=== PATIENT | female | born 1960 | race Caucasian/White ===

== ENCOUNTER 2018-08-22 16:11 | Emergency (ER) ==
[2018-08-22 16:18] VITALS: BP 132/94; TEMP 97.6; BMI 25.4
[2018-08-22] MEDS ORDERED: TORADOL IM STA (16:30)
--- NOTE | 2018-08-22 16:30 | ED.PDOC ---
General ED Provider: Dr. IRIS GARRISON Chief Complaint: Ankle Pain/Injury Stated Complaint: Rt Ankle pain. Twisted ankle earlier today Time Seen by Physician: 16:05 Mode of Arrival: Wheelchair Information Source: Patient Exam Limitations: No limitations Nursing and Triage Documentation Reviewed and Agree: Yes Does patient meet sepsis criteria?: No System Inflammatory Response Syndrome: Not Applicable Sepsis Protocol: For patient's 13 years and over: Temp is 96.8 and below OR 101 and greater Pulse >90 BPM Resp >20/minute Acutely Altered Mental Status Are patient's symptoms suggestive of a new infection, such as: -Pneumonia -Skin, Soft Tissue -Endocarditis -UTI -Bone, Joint Infection -Implantable Device -Acute Abdominal Infection -Wound Infection -Meningitis -Blood Stream Catheter Infection -Unknown Review of Systems - Review Of Systems Constitutional: Reports: No symptoms Eyes: Reports: No symptoms Ears, Nose, Mouth, Throat: Reports: No symptoms Respiratory: Reports: No symptoms Cardiac: Reports: No symptoms GI: Reports: No symptoms : Reports: No symptoms Musculoskeletal: Reports: Joint pain, Joint swelling Skin: Reports: No symptoms Neurological: Reports: No symptoms Endocrine: Reports: No symptoms Hematologic/Lymphatic: Reports: No symptoms All Other Systems: Reviewed and Negative Past Medical History - Past Medical History Previously Healthy: Yes Endocrine: Reports: None Cardiovascular: Reports: None Respiratory: Reports: None Hematological: Reports: None Gastrointestinal: Reports: None Genitourinary: Reports: None Neuro/Psych: Reports: None Musculoskeletal: Reports: None Cancer: Reports: None Last Menstrual Period: N/A - Surgical History General Surgical History: Reports: None - Family History Family History: Reports: None - Social History Smoking Status: Current every day smoker Hx Substance Use: No Alcohol Screening: Occasionally Physical Exam - Physical Exam Appearance: Well-appearing, No pain distress, Well-nourished Eyes: [place], EOMI, Conjunctiva clear ENT: Ears normal, Nose normal, Oropharynx normal Respiratory: Airway patent, Breath sounds clear, Breath sounds equal, Respirations nonlabored Cardiovascular: RRR, Pulses normal, No rub, No murmur GI/: Soft, Nontender, No masses, Bowel sounds normal, No Organomegaly Musculoskeletal: Normal strength, No calf tenderness, Limited ROM (Rt Ankle), Edema Skin: Warm, Dry, Normal color Neurological: Sensation intact, Motor intact, Reflexes intact, Cranial nerves intact, Alert, Oriented Psychiatric: Affect appropriate, Mood appropriate Interpretation - Radiology Interpretation Radiology Interpretation By: Radiologist Radiology Results: Positive (Avulsion fracture Lat Malleolus; Tibiotalar joint effusion -) Critical Care Note - Critical Care Note Total Time (mins): 0 Course - Course Orders, Labs, Meds: Orders Category Date Time Status Ketorolac Tromethamine [Toradol] MEDS 08/22/18 16:30 Discontinued 30 mg IM ONCE STA ANKLE, RIGHT MIN 3 VIEWS Stat RADS 08/22/18 16:28 Completed Medications Discontinued Medications Generic Name Dose Route Start Last Admin Trade Name Freq PRN Reason Stop Dose Admin Ketorolac Tromethamine 30 mg 08/22/18 16:30 08/22/18 16:40 Toradol IM 08/22/18 16:31 30 mg ONCE STA Administration Vital Signs: Temp Pulse Resp BP Pulse Ox 08/22/18 16:13 97.6 F 99 H 20 132/94 H 95 Departure - Departure Time of Disposition: 17:30 Disposition: HOME SELF-CARE Discharge Problem: Fracture of right ankle, lateral malleolus Instructions: Ankle Fracture (ED) Condition: Fair Pt referred to PMD for follow-up: Yes (See PCP OR ORTHOPEDIC SURGEON next WEEK) IPMP verified?: No (unable to access) Additional Instructions: Rx Meds for pain Take Ibuprofen 600 mg three times daily for pain relief Ice Elevate, non wt bearing ambulation RX norco for sever pain Prescriptions: Hydrocodone Bit/Acetaminophen [[place] 7.5-325] 1 each PO Q4HR PRN #12 tablet PRN Reason: ankle fracture Allergies/Adverse Reactions: Allergies Penicillins Adverse Reaction (Verified 08/22/18 16:17) Home Medications: Ambulatory Orders Bupropion HCl [Wellbutrin] 75 mg PO BID 08/22/18 Hydrocodone Bit/Acetaminophen [[place] 7.5-325] 1 each PO Q4HR PRN #12 tablet 08/07 Lisinopril [Zestril] 5 mg PO DAILY 08/22/18 Disposition Discussed With: Patient, Family
--- NOTE | 2018-08-22 16:47 | DI ---
EXAM: Three views of the right ankle. History: Right ankle pain and trauma. Findings: Mildly displaced evulsion fracture of the lateral malleolus with adjacent soft tissue swel ling. Tibiotalar joint effusion is present. No radiopaque foreign bodies. No dislocation. Mild po lyarticular joint space narrowing. Impression: 1. Mildly displaced avulsion fracture of the lateral malleolus with adjacent soft tissue swelling. 2. Tibiotalar joint effusion
== END 2018-08-22 18:40 | disposition home or self-care (01) ==
LOC: ED 16:11
DX: S82.61XA Displaced fracture of lateral malleolus of right fibula, initial encounter for closed fracture (principal); F17.210 Nicotine dependence, cigarettes, uncomplicated
CPT/HCPCS: 96372; 99283